=== PATIENT | male | born 1950 | race African-American/Black ===

== ENCOUNTER 2018-06-09 07:39 | Day surgery (SDC) | payer MEDICARE ==
[~2018-06-09] VITALS: Ht 180.3 cm; Wt 88.0 kg
[2018-06-09] MEDS ORDERED: LEVO25TA7 MT (08:20)
[2018-06-09] MEDS ORDERED: AMLO5TAB88 MT (08:20)
[2018-06-09] MEDS ORDERED: SIMV40TA5 MT (08:20)
[2018-06-09] MEDS ORDERED: LISI-604 MT (08:20)
[2018-06-09] MEDS ORDERED: ASPI-1158 MT (08:20)
[2018-06-09] MEDS ORDERED: TAMS0.4C31 MT (08:20)
[2018-06-09] MEDS ORDERED: HEPARIN SODIUM 1,000 UNIT/1ML VIAL IV ONE (10:00)
[2018-06-09] MEDS ORDERED: NITROGLYCERIN 50MCG/ML 10ML VIAL (CATH LAB) IV ONE (10:00)
[2018-06-09] MEDS ORDERED: NICARDIPINE 100MCG/ML 10ML VIAL (CATH LAB) IV ONE (10:00)
[2018-06-09] MEDS ORDERED: LIDOCAINE HCL 1% 20ML VIAL (Pyxis) INJ ONE (12:01)
[2018-06-09] MEDS ORDERED: IODIXANOL 320MG/ML 100 ML BOTTLE IV ONE (12:01)
[2018-06-09] MEDS ORDERED: ASPIRIN/SOD BICARB/CITRIC ACID 324MG TAB EFF ONE (12:01)
[2018-06-09] MEDS ORDERED: MIDAZOLAM HCL 2 MG/2 ML VIAL ONE (12:27)
[2018-06-09] MEDS ORDERED: FENTANYL CITRATE/PF 50MCG/ML 2ML VIAL ONE (12:27)
[2018-06-09] MEDS ORDERED: MORPHINE SULFATE 4 MG/ML CPJ (NOT FOR IM USE) IV PRN (13:15)
[2018-06-09] MEDS ORDERED: ONDANSETRON HCL 4MG/2ML INJ IV PRN (13:15)
[2018-06-09] MEDS ORDERED: ACETAMINOPHEN 325MG TABLET PO PRN (13:15)
== END 2018-06-09 15:58 | disposition home or self-care (01) ==
LOC: CCL 07:39
PROVIDERS: ATTEND Specialist
DX: I25.10 Atherosclerotic heart disease of native coronary artery without angina pectoris (principal)
CPT/HCPCS: 93005; 93458; 99152; C1769; C1887; C1893; J1644; J2250; J3010; J3490; Q9967; G0500